=== PATIENT | female | born 1970 | race Caucasian/White ===

== ENCOUNTER 2021-06-08 02:27 | Emergency (ER) | payer BC ==
[2021-06-08] MEDS ORDERED: ASPIRIN 325 MG TAB PO ONE (02:57)
--- NOTE | 2021-06-08 03:59 | XRay Report ---
CHEST 2 VIEWS INDICATION / CLINICAL INFORMATION: CHEST DISCOMFORT. COMPARISON: Chest x-ray 12/27/2014 FINDINGS: SUPPORT DEVICES: None. HEART / MEDIASTINUM: No significant abnormality. LUNGS / PLEURA: No significant pulmonary or pleural abnormality. No pneumothorax. BONES: No significant osseous abnormality. ADDITIONAL FINDINGS: No significant additional findings. IMPRESSION: 1. No active cardiopulmonary disease. Signer Name: Raheem Ly II, MD Signed: 06/08/2021 3:55 AM Workstation Name: [id number]
[2021-06-08 04:09] LABS: Basophils # (Auto) 0.1 K/mm3 (0.0-0.1); Basophils % (Auto) 2.4 % (0.0-1.8); Eosinophils # (Auto) 0.1 K/mm3 (0.0-0.4); Eosinophils % (Auto) 1.5 % (0.0-4.3); Hematocrit 41.7 % (30.3-42.9); Hemoglobin 14.2 gm/dl (10.1-14.3); Lymphocytes # (Auto) 1.4 K/mm3 (1.2-5.4); Lymphocytes % (Auto) 30.7 % (13.4-35.0); Mean Corpuscular HGB Conc 34 % (30-34); Mean Corpuscular Volume 89 fl (79-97); Monocytes # (Auto) 0.5 K/mm3 (0.0-0.8); Monocytes % (Auto) 9.7 % (0.0-7.3); Platelet Count 243 K/mm3 (140-440); Red Blood Count 4.67 M/mm3 (3.65-5.03); Red Cell Distribution Width 13.4 % (13.2-15.2)
[2021-06-08 04:30] LABS: Alanine Aminotransferase 13 units/L (7-56); Albumin 4.6 g/dL (3.9-5); BUN/Creatinine Ratio 18; Blood Urea Nitrogen 14 mg/dL (7-17); Hemolysis Index 7
[2021-06-08] MEDS ORDERED: LOSARTAN 50 MG TAB PO ONE (09:23)
--- NOTE | 2021-06-08 09:31 | Emergency Department Report ---
ED Dizziness HPI - General Chief Complaint: Chest Pain Stated Complaint: SOB/BP CONCERNS Time Seen by Provider: 06/08/21 09:02 Source: patient, old records reviewed Mode of arrival: Ambulatory Limitations: No Limitations - History of Present Illness Initial Comments: 51-year-old with a past medical history of CHF, hypertension, and anemia, hypothyroidism presents to the hospital complaining intermittent lightheadedness and uncontrolled blood pressure for several months that worsened over the last several weeks. She denies chest pain or shortness of breath. patient is only on carvedilol 6.25 mg twice daily. Her Entresto was stopped 2 weeks ago for intermittent hypotension. Her striper wrote for losartan 50 mg daily which patient has yet to pickle pumper at the pharmacy. Patient states that last night she was awoken from sleep due to feeling like her heart was pounding in her chest and took her blood pressure and it was elevated. Patient states her blood pressure has been elevated intermittently at home and as high as 214/113. She presents today stating she has not felt well for several weeks secondary to lightheadedness and fatigue with intermittent headache. Patient had nausea upon arrival which has since resolved. She denies fever, vomiting, she has been eating appropriately and trying to drink lots of water without improvement. Heart rate at home in the 60s to 70s and she does not report a heart rate greater than 100. She is currently not on thyroid medication. Last dose of carvedilol was last night since patient has been waiting in the ER overnight for evaluation. she expresses frustration because her symptoms continue despite seeing PMD and striper Dr. Talavera associated with [place] [facility] - Related Data Home Medications Medication Instructions Recorded Confirmed Last Taken methIMAzole [Tapazole] 5 mg PO QDAY 12/19/14 04/12/15 04/11/15 09:00 5 mg Norgestimate-Ethinyl Estradiol 1 tab PO DAILY 04/12/15 04/12/15 04/11/15 [Tri-Sprintec Tablet] 1 Allergies Allergy/AdvReac Type Severity Reaction Status Date / Time amoxicillin Allergy Unknown Verified 12/19/14 20:28 penicillin G Allergy Unknown Verified 12/19/14 20:27 ED Review of Systems ROS: Stated complaint: SOB/BP CONCERNS Other details as noted in HPI Comment: All other systems reviewed and negative ED Past Medical Hx - Past Medical History Previous Medical History?: Yes Hx Hypertension: Yes Hx Congestive Heart Failure: Yes Hx Diabetes: No Hx Asthma: No Hx COPD: No Additional medical history: ANEMIA,HYPERTHYROIDISM - Social History Smoking Status: Never Smoker - Medications Home Medications: Home Medications Medication Instructions Recorded Confirmed Last Taken Type methIMAzole [Tapazole] 5 mg PO QDAY 12/19/14 04/12/15 04/11/15 09:00 History 5 mg Norgestimate-Ethinyl Estradiol 1 tab PO DAILY 04/12/15 04/12/15 04/11/15 History [Tri-Sprintec Tablet] 1 ED Physical Exam - General Limitations: No Limitations - Other Other exam information: General: No acute distress Head: Atraumatic Eyes: normal appearance ENT: Moist mucous membranes Neck: Normal appearance, no midline tenderness Chest: Clear to auscultation bilaterally CV: Regular rate and rhythm Abdomen: Soft, normal bowel sounds, nontender, nondistended, no rebound or guarding Back: Normal inspection Extremity: Normal inspection, full range of motion Neuro: Alert O x 3, no facial asymmetry, speech clear, no gross motor sensory deficit, [id number] function intact Psych: Appropriate behavior Skin: No rash ED Course Vital Signs 06/08/21 06/08/21 06/08/21 02:32 08:38 08:42 Temperature 97.6 F Pulse Rate 70 60 Pulse Rate [ Lying] Pulse Rate [ Sitting] Pulse Rate [ Standing] Respiratory 18 16 Rate Blood Pressure 152/100 Blood Pressure [Lying] Blood Pressure 170/80 [Right] Blood Pressure [Sitting] Blood Pressure [Standing] O2 Sat by Pulse 100 100 100 Oximetry 06/08/21 06/08/21 06/08/21 08:44 08:45 09:01 Temperature Pulse Rate Pulse Rate [ Lying] Pulse Rate [ Sitting] Pulse Rate [ Standing] Respiratory Rate Blood Pressure 170/80 158/80 Blood Pressure [Lying] Blood Pressure [Right] Blood Pressure [Sitting] Blood Pressure [Standing] O2 Sat by Pulse 100 100 100 Oximetry 06/08/21 06/08/21 06/08/21 09:15 09:37 09:41 Temperature Pulse Rate Pulse Rate [ 64 Lying] Pulse Rate [ 60 Sitting] Pulse Rate [ 73 Standing] Respiratory Rate Blood Pressure 158/80 145/76 Blood Pressure 145/76 [Lying] Blood Pressure [Right] Blood Pressure 167/83 [Sitting] Blood Pressure 145/85 [Standing] O2 Sat by Pulse 99 100 Oximetry 06/08/21 06/08/21 06/08/21 09:45 10:01 10:15 Temperature Pulse Rate Pulse Rate [ Lying] Pulse Rate [ Sitting] Pulse Rate [ Standing] Respiratory Rate Blood Pressure 154/80 154/80 154/80 Blood Pressure [Lying] Blood Pressure [Right] Blood Pressure [Sitting] Blood Pressure [Standing] O2 Sat by Pulse 100 100 100 Oximetry 06/08/21 06/08/21 06/08/21 10:31 10:45 11:01 Temperature Pulse Rate Pulse Rate [ Lying] Pulse Rate [ Sitting] Pulse Rate [ Standing] Respiratory Rate Blood Pressure 154/80 154/80 157/87 Blood Pressure [Lying] Blood Pressure [Right] Blood Pressure [Sitting] Blood Pressure [Standing] O2 Sat by Pulse 100 99 100 Oximetry 06/08/21 06/08/21 06/08/21 11:15 11:31 11:45 Temperature Pulse Rate Pulse Rate [ Lying] Pulse Rate [ Sitting] Pulse Rate [ Standing] Respiratory Rate Blood Pressure 157/87 157/87 157/87 Blood Pressure [Lying] Blood Pressure [Right] Blood Pressure [Sitting] Blood Pressure [Standing] O2 Sat by Pulse 100 100 100 Oximetry - Reevaluation(s) Reevaluation #1: 06/08/21 12:35 BP currently 29/ patient reports feeling less lightheaded ED Medical Decision Making - Lab Data Result diagrams: 06/08/21 03:47 06/08/21 03:47 Lab Results 06/08/21 06/08/21 06/08/21 Range/Units 03:47 03:47 06:05 WBC 4.7 (4.5-11.0) K/mm3 RBC 4.67 (3.65-5.03) M/mm3 Hgb 14.2 (10.1-14.3) gm/dl Hct 41.7 (30.3-42.9) % MCV 89 (79-97) fl MCH 30 (28-32) pg MCHC 34 (30-34) % RDW 13.4 (13.2-15.2) % Plt Count 243 (140-440) K/mm3 Lymph % (Auto) 30.7 (13.4-35.0) % [place] % (Auto) 9.7 H (0.0-7.3) % Eos % (Auto) 1.5 (0.0-4.3) % Baso % (Auto) 2.4 H (0.0-1.8) % Lymph # (Auto) 1.4 (1.2-5.4) K/mm3 [place] # (Auto) 0.5 (0.0-0.8) K/mm3 Eos # (Auto) 0.1 (0.0-0.4) K/mm3 Baso # (Auto) 0.1 (0.0-0.1) K/mm3 Seg Neutrophils % 55.7 (40.0-70.0) % Seg Neutrophils # 2.6 (1.8-7.7) K/mm3 Sodium 141 (137-145) mmol/L Potassium 4.5 (3.6-5.0) mmol/L Chloride 103.7 (98-107) mmol/L Carbon Dioxide 24 (22-30) mmol/L Anion Gap 18 mmol/L BUN 14 (7-17) mg/dL Creatinine 0.8 (0.6-1.2) mg/dL Estimated GFR > 60 ml/min BUN/Creatinine Ratio 18 % Glucose 117 H (65-100) mg/dL Calcium 9.0 (8.4-10.2) mg/dL Magnesium (1.7-2.3) mg/dL Total Bilirubin 0.40 (0.1-1.2) mg/dL AST 13 (5-40) units/L ALT 13 (7-56) units/L Alkaline Phosphatase 85 (35-129) units/L Troponin T < 0.010 < 0.010 (0.00-0.029) ng/mL Total Protein 7.1 (6.3-8.2) g/dL Albumin 4.6 (3.9-5) g/dL Albumin/Globulin Ratio 1.8 % TSH (0.270-4.200) mlU/mL Free T4 (0.76-1.46) ng/dL Urine Color (Yellow) Urine Turbidity (Clear) Urine pH (5.0-7.0) Ur Specific [employer] (1.003-1.030) Urine Protein (Negative) mg/dL Urine Glucose (UA) (Negative) mg/dL Urine Ketones (Negative) mg/dL Urine Blood (Negative) Urine Nitrite (Negative) Urine Bilirubin (Negative) Urine Urobilinogen (<2.0) mg/dL Ur Leukocyte Esterase (Negative) Urine WBC (Auto) (0.0-6.0) /HPF Urine RBC (Auto) (0.0-6.0) /HPF U Epithel Cells (Auto) (0-13.0) /HPF 06/08/21 06/08/21 06/08/21 Range/Units 09:31 09:31 09:31 WBC (4.5-11.0) K/mm3 RBC (3.65-5.03) M/mm3 Hgb (10.1-14.3) gm/dl Hct (30.3-42.9) % MCV (79-97) fl MCH (28-32) pg MCHC (30-34) % RDW (13.2-15.2) % Plt Count (140-440) K/mm3 Lymph % (Auto) (13.4-35.0) % [place] % (Auto) (0.0-7.3) % Eos % (Auto) (0.0-4.3) % Baso % (Auto) (0.0-1.8) % Lymph # (Auto) (1.2-5.4) K/mm3 [place] # (Auto) (0.0-0.8) K/mm3 Eos # (Auto) (0.0-0.4) K/mm3 Baso # (Auto) (0.0-0.1) K/mm3 Seg Neutrophils % (40.0-70.0) % Seg Neutrophils # (1.8-7.7) K/mm3 Sodium (137-145) mmol/L Potassium (3.6-5.0) mmol/L Chloride (98-107) mmol/L Carbon Dioxide (22-30) mmol/L Anion Gap mmol/L BUN (7-17) mg/dL Creatinine (0.6-1.2) mg/dL Estimated GFR ml/min BUN/Creatinine Ratio % Glucose (65-100) mg/dL Calcium (8.4-10.2) mg/dL Magnesium 2.10 (1.7-2.3) mg/dL Total Bilirubin (0.1-1.2) mg/dL AST (5-40) units/L ALT (7-56) units/L Alkaline Phosphatase (35-129) units/L Troponin T < 0.010 (0.00-0.029) ng/mL Total Protein (6.3-8.2) g/dL Albumin (3.9-5) g/dL Albumin/Globulin Ratio % TSH 0.809 (0.270-4.200) mlU/mL Free T4 1.33 (0.76-1.46) ng/dL Urine Color (Yellow) Urine Turbidity (Clear) Urine pH (5.0-7.0) Ur Specific [employer] (1.003-1.030) Urine Protein (Negative) mg/dL Urine Glucose (UA) (Negative) mg/dL Urine Ketones (Negative) mg/dL Urine Blood (Negative) Urine Nitrite (Negative) Urine Bilirubin (Negative) Urine Urobilinogen (<2.0) mg/dL Ur Leukocyte Esterase (Negative) Urine WBC (Auto) (0.0-6.0) /HPF Urine RBC (Auto) (0.0-6.0) /HPF U Epithel Cells (Auto) (0-13.0) /HPF // Range/Units 09:41 WBC (4.5-11.0) K/mm3 RBC (3.65-5.03) M/mm3 Hgb (10.1-14.3) gm/dl Hct (30.3-42.9) % MCV (79-97) fl MCH (28-32) pg MCHC (30-34) % RDW (13.2-15.2) % Plt Count (140-440) K/mm3 Lymph % (Auto) (13.4-35.0) % [place] % (Auto) (0.0-7.3) % Eos % (Auto) (0.0-4.3) % Baso % (Auto) (0.0-1.8) % Lymph # (Auto) (1.2-5.4) K/mm3 [place] # (Auto) (0.0-0.8) K/mm3 Eos # (Auto) (0.0-0.4) K/mm3 Baso # (Auto) (0.0-0.1) K/mm3 Seg Neutrophils % (40.0-70.0) % Seg Neutrophils # (1.8-7.7) K/mm3 Sodium (137-145) mmol/L Potassium (3.6-5.0) mmol/L Chloride (98-107) mmol/L Carbon Dioxide (22-30) mmol/L Anion Gap mmol/L BUN (7-17) mg/dL Creatinine (0.6-1.2) mg/dL Estimated GFR ml/min BUN/Creatinine Ratio % Glucose (65-100) mg/dL Calcium (8.4-10.2) mg/dL Magnesium (1.7-2.3) mg/dL Total Bilirubin (0.1-1.2) mg/dL AST (5-40) units/L ALT (7-56) units/L Alkaline Phosphatase (35-129) units/L Troponin T (0.00-0.029) ng/mL Total Protein (6.3-8.2) g/dL Albumin (3.9-5) g/dL Albumin/Globulin Ratio % TSH (0.270-4.200) mlU/mL Free T4 (0.76-1.46) ng/dL Urine Color Colorless (Yellow) Urine Turbidity Neg (Clear) Urine pH 6.0 (5.0-7.0) Ur Specific [employer] 1.002 L (1.003-1.030) Urine Protein <15 mg/dl (Negative) mg/dL Urine Glucose (UA) Negative (Negative) mg/dL Urine Ketones Negative (Negative) mg/dL Urine Blood Negative (Negative) Urine Nitrite Negative (Negative) Urine Bilirubin Negative (Negative) Urine Urobilinogen 0.0 (<2.0) mg/dL Ur Leukocyte Esterase Negative (Negative) Urine WBC (Auto) 0.0 (0.0-6.0) /HPF Urine RBC (Auto) 2.0 (0.0-6.0) /HPF U Epithel Cells (Auto) 3.0 (0-13.0) /HPF - EKG Data -: EKG Interpreted by Nm EKG shows normal: sinus rhythm, ST-T waves (No ischemia ST elevation) Rate: normal (60) - Radiology Data Radiology results: report reviewed Chest x-ray: No acute finding as per radiology - Medical Decision Making 51-year-old female presents to the hospital with complaints of intermittent lightheadedness and labile blood pressure for several weeks. Symptoms worsened last night. BP mildly elevated in the ED and improved with losartan 50 mg. At lab tests including thyroid, electrolytes, CBC are unremarkable. CT head unremarkable. Patient had further reduction in her blood pressure after losartan with some improvement in her symptoms. Patient does not complain of tachycardia and was informed that carvedilol can sometimes give people light headedness and slow heart rate. Outpatient follow-up with her striper advised Critical Care Time: No Critical care attestation.: If time is entered above; I have spent that time in minutes in the direct care of this critically ill patient, excluding procedure time. ED Disposition Clinical Impression: Hypertension, Lightheaded Disposition: 01 HOME / SELF CARE / HOMELESS Is pt being admited?: No Does the pt Need Aspirin: No Condition: Stable Instructions: Hypertension (ED), Hypertension, Adult, [id number], Dizziness, [id number] Additional Instructions: Take your medication as prescribed. Follow-up with your striper. Return if symptoms worsen as indicated by your discharge instructions. Referrals: [facility] [Other] - 3-5 Days MARVIN TALAVERA MD [Staff Physician] - 3-5 Days Time of Disposition: 12:37
--- NOTE | 2021-06-08 10:15 | Cat Scan Report ---
CT head/brain wo con INDICATION / CLINICAL INFORMATION: 51 years Female; intermittent headache, nausea and vomiting. TECHNIQUE: Routine CT head without contrast. All CT scans at this location are performed using CT dos e reduction for ALARA by means of automated exposure control. COMPARISON: None. FINDINGS: BRAIN / INTRACRANIAL CONTENTS: There appear to be milder cerebral white matter changes indicative of mild microvascular angiopathy. The ventricular system is within normal limits in size and configurati on. There is no CT evidence of acute intracranial hemorrhage or significant mass effect. ORBITS: No significant abnormality of visualized orbits. SINUSES / MASTOIDS: No significant abnormality in the visualized paranasal sinuses or mastoid air dago ls. CRANIOCERVICAL JUNCTION: No significant abnormality. ADDITIONAL FINDINGS: None. IMPRESSION: 1. There is no CT evidence of acute intracranial process. Signer Name: Dilan Funes MD Signed: 06/08/2021 10:11 AM Workstation Name: [id number]
[2021-06-08 10:17] LABS: Bilirubin,Urine Negative (Negative); Blood,Urine Negative (Negative); Color,Urine Colorless (Yellow)
[2021-06-08 10:18] LABS: Protein,Urine <15 mg/dL mg/dL (Negative)
[2021-06-08 10:21] LABS: Free T4 (Free Thyroxine) 1.33 ng/dL (0.76-1.46)
--- NOTE | 2021-06-08 10:36 | Electrocardiograph Report ---
[facility] Test Date: 2021-06-08 Test Time: 02:39:09 Pat Name: SADE COFFEY Department: Room: Gender: F Environmental Health Inspector: FAZAL : 1970 Requested By: ED DOC Order Number: [id number] Reading MD: Slade Tam Measurements Intervals [place] Rate: 60 P: 70 TX: 221 QRS: 62 QRSD: 100 T: 63 QT: 419 QTc: 420 Interpretive Statements Sinus rhythm Prolonged [place] interval No previous ECG available for comparison Electronically Signed On 06-08-2021 10:36:01 EDT by Slade Tam
[2021-06-08 13:02] VITALS: BP 164/64
== END 2021-06-08 13:00 | disposition home or self-care (01) ==
LOC: ED 02:27
DX: I10 Essential (primary) hypertension (principal); R42 Dizziness and giddiness; Z88.0 Allergy status to penicillin
CPT/HCPCS: 36415; 70450; 71046; 80053; 81001; 83735; 84439; 84443; 84484; 85025; 93005; 99284